=== PATIENT | female | born 1995 | race African-American/Black ===

== ENCOUNTER 2024-02-20 15:58 | Emergency (ER) | payer SELFPAY ==
[2024-02-20 16:17] LABS: Bilirubin Negative (Negative); Blood, Urine Negative (Negative); Clarity Clear (Clear); Glucose, Urine (Dipstick) Negative (Negative); Ketone, Urine Negative (Negative); Leukocyte Negative (Negative); Nitrite Positive (Negative); Protein, Urine (Dipstick) Negative (Neg-Trace); Urobilinogen 0.2 mg/dL (Less than 2); pH, Urine 6.5 (5.0-9.0)
[2024-02-20 16:30] LABS: Bacteria/HPF 1+ HPF (None Seen); CAUTI Indications for Culture Dysuria,urgency,freq; RBC/HPF None Seen HPF (0-3); Squamous Epithelial 0-3 HPF (0-3); Urine Culture Reflex No No; WBC/HPF None Seen HPF (0-3)
[2024-02-20 17:29] LABS: Pregnancy Test - Urine (BHCG) Negative (Negative); Pregu Control Background? CLEAR/WHITE (CLR/WHITE); Pregu Control Bar Appear? YES (CONTROL BAR)
== END 2024-02-20 17:11 | disposition home or self-care (01) ==
LOC: BURERS 15:58
DX: R30.0 Dysuria (principal); R53.0 Neoplastic (malignant) related fatigue; R39.15 Urgency of urination
CPT/HCPCS: 36416; 81001; 81025; 87086; 99283